=== PATIENT | female | born 1980 | race Caucasian/White ===

== ENCOUNTER 2016-08-22 11:25 | Observation (INO) | payer BC ==
[2016-08-22] VITALS (9 sets, daily range): BP systolic 106–126; BP diastolic 52–79
[~2016-08-22] VITALS: Ht 160 cm; Wt 73.9 kg
[~2016-08-22 11:25] MED LIST: HYDR-2758 PO; IV RINGERS,LACTATED 1000ML 1,000 ML IV SCH; LIDOCAINE 1% 1 ML SYRINGE. ID PRN; ONDA4TAB10 SL; ONDANSETRON PF 4 MG/2 ML VIAL. IV PRN; PROCHLORPERAZINE 10 MG/2 ML VIAL. IV PRN; fentaNYL PF VIAL 100 MCG/2 ML VIAL IV PRN
[2016-08-22] MEDS ORDERED: LIDOCAINE 1%/EPI 1:100,000 20 ML VIAL. ONE (11:38)
[2016-08-22] MEDS ORDERED: ESTROGENS, CONJ VAGINAL CREAM 30GM TUBE. ONE (11:38)
[2016-08-22] MEDS ORDERED: BUPIVACAINE-EPI 0.25%-1:200000 50 ML VIAL. ONE (11:38)
[2016-08-22] MEDS ORDERED: OMEP20TA63 PO (11:45)
[2016-08-22] MEDS ORDERED: NORG1TAB6 PO (11:45)
[2016-08-22 11:49] LABS: NEG OBC UR NEG; POS OBC UR POS
[2016-08-22 12:10] LABS: BASO % 0 % (0-3); EOS % 0 % (0-3); HEMATOCRIT 39.1 % (36.0-47.0); HEMOGLOBIN 13.2 g/dL (12.0-15.5); LYMPH # 1.9 x10^3/uL (1.0-4.8); LYMPH % 23 % (24-48); MEAN CORPUSCULAR HEMOGLOBIN 32 pg (25-35); MEAN CORPUSCULAR HGB CONC 34 g/dL (31-37); MEAN CORPUSCULAR VOLUME 97 fL (79-100); MONO % 6 % (0-9); NEUT % 71 % (31-73); PLATELET COUNT 211 x10^3/uL (140-400); RED BLOOD COUNT 4.05 x10^6/uL (3.50-5.40); RED CELL DISTRIBUTION WIDTH 13.2 % (11.5-14.5); WHITE BLOOD COUNT 8.3 x10^3/uL (4.0-11.0)
[2016-08-22] MEDS ORDERED: ROCURONIUM 50 MG/5 ML VIAL. ONE (13:13)
[2016-08-22] MEDS ORDERED: DEXAMETHASONE SOD PHOS 20 MG/5 ML VIAL. ONE (13:13)
[2016-08-22] MEDS ORDERED: MIDAZOLAM HCL/PF 2 MG/2 ML VIAL. ONE (13:13)
[2016-08-22] MEDS ORDERED: PROPOFOL 20 ML IV ONE (13:13)
[2016-08-22] MEDS ORDERED: ONDANSETRON PF 4 MG/2 ML VIAL. ONE (13:13)
[2016-08-22] MEDS ORDERED: SEVOFLURANE 61 TO 120 MINUTES. IH ONE (13:13)
[2016-08-22] MEDS ORDERED: fentaNYL PF VIAL 100 MCG/2 ML VIAL ONE (13:13)
[2016-08-22] MEDS ORDERED: LIDOCAINE 2% PF Vial for OR 5 ML VIAL. ONE (13:13)
[2016-08-22] MEDS: fentaNYL PF VIAL 100 MCG/2 ML VIAL IV PRN ×5 (15:16→18:56)
[2016-08-22] MEDS ORDERED: GLYCOPYRROLATE 1 MG/5 ML VIAL. ONE (17:51)
[2016-08-22] MEDS ORDERED: NEOSTIGMINE METHYLSULFATE 5 MG/5 ML SYRINGE. ONE (17:51)
--- NOTE | 2016-08-22 17:56 | PDOC ---
BRIEF OPERATIVE NOTE Pre-Op Diagnosis 1. Menorrhagia 2. Dysmenorrhea Post-Op Diagnosis Same Procedure Performed TLH via [facility] Surgeon Dr. Kimi Jordan Anesthesia Type: General Blood Loss 25 ml Specimens Obtained uterus and cervix Findings enlarged uterus; nml fallopian tubes and ovaries juliette. Complications none HAM GARRISON Jr, MD Aug 22, 2016 17:55
[2016-08-22] MEDS ORDERED: ZOLPIDEM 5 MG TABLET. PO PRN (18:00)
[2016-08-22] MEDS ORDERED: CALCIUM CARBONATE 500 MG TAB.CHEW PO PRN (18:00)
[2016-08-22] MEDS ORDERED: 0.9 % SODIUM CHLORIDE 10 ML DISP.SYRIN. IV PRN (18:00)
[2016-08-22] MEDS ORDERED: ONDANSETRON PF 4 MG/2 ML VIAL. IV PRN (18:00)
[2016-08-22] MEDS ORDERED: diphenhydrAMINE HCL 25 MG CAPSULE PO PRN (18:00)
[2016-08-22] MEDS ORDERED: SIMETHICONE 80 MG TAB.CHEW PO PRN (18:00)
[2016-08-22] MEDS ORDERED: PROCHLORPERAZINE 10 MG/2 ML VIAL. IV PRN (18:00)
[2016-08-22] MEDS ORDERED: diphenhydrAMINE 50 MG/ML VIAL IV PRN (18:00)
[2016-08-22] MEDS ORDERED: DEXTROSE 50% 25 GM / 50ML DISP.SYRIN. IV PRN (18:00)
[2016-08-22] MEDS: MEPERIDINE PF 25 MG/ML VIAL. IV PRN ×2 (18:23→18:35)
[2016-08-22] MEDS: KETOROLAC TROMETHAMINE 30 MG/ML INJ. IV PRN (19:00)
[2016-08-22] MEDS ORDERED: HYDROmorphone 2 MG/ML VIAL IV ONE (19:30)
[2016-08-22] MEDS: oxyCODONE/APAP 5/325 1 TAB TABLET PO PRN (21:56)
[2016-08-22] MEDS: GABAPENTIN 300 MG CAPSULE. PO SCH (21:56)
[2016-08-23] MEDS: oxyCODONE/APAP 5/325 1 TAB TABLET PO PRN ×3 (02:35→12:24)
[2016-08-23] MEDS: KETOROLAC TROMETHAMINE 30 MG/ML INJ. IV PRN (02:35)
[2016-08-23 02:43] VITALS: BP 124/67
[2016-08-23 05:12] LABS: BASO % 0 % (0-3); EOS % 0 % (0-3); HEMATOCRIT 35.5 % (36.0-47.0); HEMOGLOBIN 11.7 g/dL (12.0-15.5); LYMPH # 0.7 x10^3/uL (1.0-4.8); LYMPH % 5 % (24-48); MEAN CORPUSCULAR HEMOGLOBIN 32 pg (25-35); MEAN CORPUSCULAR HGB CONC 33 g/dL (31-37); MEAN CORPUSCULAR VOLUME 96 fL (79-100); MONO % 2 % (0-9); NEUT % 93 % (31-73); PLATELET COUNT 200 x10^3/uL (140-400); RED BLOOD COUNT 3.68 x10^6/uL (3.50-5.40); RED CELL DISTRIBUTION WIDTH 13.2 % (11.5-14.5); WHITE BLOOD COUNT 14.2 x10^3/uL (4.0-11.0)
[2016-08-23 05:49] VITALS: BP 99/56
[2016-08-23] MEDS: GABAPENTIN 300 MG CAPSULE. PO SCH (05:56)
[2016-08-23 08:02] VITALS: BP 117/65
--- NOTE | 2016-08-23 08:46 | PDOC ---
SURGICAL PROGRESS NOTE Subjective Pt. feeling well. Pain controlled. Pt. tolerating regular diet and ambulating in room. Vital Signs Vital Signs Date Time Temp Pulse Resp B/P (MAP) Pulse Ox O2 Delivery O2 Flow Rate FiO2 08/23/16 08:05 16 Room Air 08/23/16 05:49 97.5 66 99/56 (70) 98 97.5 08/22/16 21:35 2.0 I&O Intake and Output 08/23/16 07:00 Intake Total 4175 ml Output Total 2100 ml Balance 2075 ml Intake Oral 1675 ml IV Total 2500 ml Output Urine Total 2050 ml Estimated Blood Loss 50 ml PATIENT HAS A LEÓN: No General: Alert, Oriented X3, Cooperative HEENT: Atraumatic Lungs: Clear to auscultation Heart: Regular rate Abdomen: Normal bowel sounds, Soft, No tenderness Extremities: No edema Psych/Mental Status: Mental status NL Labs Laboratory Tests Test 08/22/16 11:40 08/22/16 11:50 08/22/16 14:05 08/22/16 15:04 Urine Test Negative (NEG) White Blood Count 8.3 x10^3/uL (4.0-11.0) Red Blood Count 4.05 x10^6/uL (3.50-5.40) Hemoglobin 13.2 g/dL (12.0-15.5) Hematocrit 39.1 % (36.0-47.0) Mean Corpuscular Volume 97 fL (79-100) Mean Corpuscular Hemoglobin 32 pg (25-35) Mean Corpuscular Hemoglobin Concent 34 g/dL (31-37) Red Cell Distribution Width 13.2 % (11.5-14.5) Platelet Count 211 x10^3/uL (140-400) Neutrophils (%) (Auto) 71 % (31-73) Lymphocytes (%) (Auto) 23 % (24-48) Monocytes (%) (Auto) 6 % (0-9) Eosinophils (%) (Auto) 0 % (0-3) Basophils (%) (Auto) 0 % (0-3) Neutrophils # (Auto) 5.9 x10^3uL (1.8-7.7) Lymphocytes # (Auto) 1.9 x10^3/uL (1.0-4.8) Monocytes # (Auto) 0.5 x10^3/uL (0.0-1.1) Eosinophils # (Auto) 0.0 x10^3/uL (0.0-0.7) Basophils # (Auto) 0.0 x10^3/uL (0.0-0.2) Glucose (Fingerstick) 77 mg/dL (70-99) 83 mg/dL (70-99) Test 08/23/16 04:45 White Blood Count 14.2 x10^3/uL (4.0-11.0) Red Blood Count 3.68 x10^6/uL (3.50-5.40) Hemoglobin 11.7 g/dL (12.0-15.5) Hematocrit 35.5 % (36.0-47.0) Mean Corpuscular Volume 96 fL (79-100) Mean Corpuscular Hemoglobin 32 pg (25-35) Mean Corpuscular Hemoglobin Concent 33 g/dL (31-37) Red Cell Distribution Width 13.2 % (11.5-14.5) Platelet Count 200 x10^3/uL (140-400) Neutrophils (%) (Auto) 93 % (31-73) Lymphocytes (%) (Auto) 5 % (24-48) Monocytes (%) (Auto) 2 % (0-9) Eosinophils (%) (Auto) 0 % (0-3) Basophils (%) (Auto) 0 % (0-3) Neutrophils # (Auto) 13.2 x10^3uL (1.8-7.7) Lymphocytes # (Auto) 0.7 x10^3/uL (1.0-4.8) Monocytes # (Auto) 0.2 x10^3/uL (0.0-1.1) Eosinophils # (Auto) 0.0 x10^3/uL (0.0-0.7) Basophils # (Auto) 0.0 x10^3/uL (0.0-0.2) Laboratory Tests Test 08/22/16 11:40 08/22/16 11:50 08/22/16 14:05 08/22/16 15:04 Urine Test Negative (NEG) White Blood Count 8.3 x10^3/uL (4.0-11.0) Red Blood Count 4.05 x10^6/uL (3.50-5.40) Hemoglobin 13.2 g/dL (12.0-15.5) Hematocrit 39.1 % (36.0-47.0) Mean Corpuscular Volume 97 fL (79-100) Mean Corpuscular Hemoglobin 32 pg (25-35) Mean Corpuscular Hemoglobin Concent 34 g/dL (31-37) Red Cell Distribution Width 13.2 % (11.5-14.5) Platelet Count 211 x10^3/uL (140-400) Neutrophils (%) (Auto) 71 % (31-73) Lymphocytes (%) (Auto) 23 % (24-48) Monocytes (%) (Auto) 6 % (0-9) Eosinophils (%) (Auto) 0 % (0-3) Basophils (%) (Auto) 0 % (0-3) Neutrophils # (Auto) 5.9 x10^3uL (1.8-7.7) Lymphocytes # (Auto) 1.9 x10^3/uL (1.0-4.8) Monocytes # (Auto) 0.5 x10^3/uL (0.0-1.1) Eosinophils # (Auto) 0.0 x10^3/uL (0.0-0.7) Basophils # (Auto) 0.0 x10^3/uL (0.0-0.2) Glucose (Fingerstick) 77 mg/dL (70-99) 83 mg/dL (70-99) Test 08/23/16 04:45 White Blood Count 14.2 x10^3/uL (4.0-11.0) Red Blood Count 3.68 x10^6/uL (3.50-5.40) Hemoglobin 11.7 g/dL (12.0-15.5) Hematocrit 35.5 % (36.0-47.0) Mean Corpuscular Volume 96 fL (79-100) Mean Corpuscular Hemoglobin 32 pg (25-35) Mean Corpuscular Hemoglobin Concent 33 g/dL (31-37) Red Cell Distribution Width 13.2 % (11.5-14.5) Platelet Count 200 x10^3/uL (140-400) Neutrophils (%) (Auto) 93 % (31-73) Lymphocytes (%) (Auto) 5 % (24-48) Monocytes (%) (Auto) 2 % (0-9) Eosinophils (%) (Auto) 0 % (0-3) Basophils (%) (Auto) 0 % (0-3) Neutrophils # (Auto) 13.2 x10^3uL (1.8-7.7) Lymphocytes # (Auto) 0.7 x10^3/uL (1.0-4.8) Monocytes # (Auto) 0.2 x10^3/uL (0.0-1.1) Eosinophils # (Auto) 0.0 x10^3/uL (0.0-0.7) Basophils # (Auto) 0.0 x10^3/uL (0.0-0.2) Assessment/Plan A: POD#1 s/p TLH P: D/c home Problems: HAM GARRISON Jr, MD Aug 23, 2016 08:45
--- NOTE | 2016-08-23 08:48 | DISCH ---
DISCHARGE INSTRUCTIONS Condition on Discharge Condition on Discharge: Stable Activity After Discharge Activity Instructions for Disc: Activity as tolerated Lifting Instructions after Dis: No heavy lifting Driving Instructions after Dis: Do not drive today Diet after Discharge Diet after Discharge: Regular Contacting the DRNhua after DC Call your doctor for: Concerns you may have Follow-Up Follow up with: Dr. Bolden in 2 weeks. HAM BOLDEN Jr, MD Aug 23, 2016 08:48
[2016-08-23 10:18] LABS: PLT ESTIMATE ADEQUATE (ADEQUATE)
[2016-08-23 12:20] VITALS: BP 117/65
[2016-08-23 13:55] VITALS: BP 116/66
--- NOTE | 2016-08-23 16:57 | PDOC4 ---
OPERATIVE NOTE: PreOp Dx: Dysmenorrhea Menorrhagia PostOp Dx: Same Procedure: TLH via [facility] Description: Pt. taken to surgery suite and placed in dorsolithotomy position. She was prepped and draped in normal fashion. Bi-valve speculum placed vaginally. Single tooth tenaculum placed on anterior lip of cervix. SRINIVAS uterine manipulator placed. Single tooth tenaculum and speculum removed. Attention now placed on abdomen. Small transversion skin incision made with scalpel just below umbilicus. Veres needle placed through incision site to insuflate abdomen to 1.5 L CO2. Veres needle removed and 8 mm tocar placed. Camera was placed. Two additional incisions were made in Right and Left lower quadrant for 8 mm port sites. An accessory port site was placed in upper Left quadrant. The [facility] robot was docked in normal fashion. I then proceeded to the adoption counselor. I utilized the vessel sealer and bipolar cautery for the procedure. The Right round ligament was coagulated and dissected. THe Right broad ligament was coagulated and dissected, including the Right uterine artery. A bladder flap was created with blunt dissection and with aid from the vessel sealer. The same process took place with the Left adnexa. Colpotomy was performed with the spatula at the level of the cervical ring. The uterus and cervix were removed. The vaginal cuff was reapproximated with V-lock suture in running fashion. Suction irrigation was used to verify good hemostasis. The ureters were visualized and functioning normally. The robot was undocked and the trocars removed. The skin incision sites were reapproximated with 4-0 vicryl in subcutaneous manner. 0.25% Marcaine with epinephrine was injected at each incision site. Moist vaginal packing was placed. Pt. tolerated procedure well. Sponge and needle count correct x 3. Pt. taken to PACU in stable condition. HAM GARRISON Jr, MD Aug 23, 2016 16:57
--- NOTE | 2016-08-26 15:10 | PATHOLOGY ---
PATHOLOGY REPORT * * * * * * * * FINAL DIAGNOSIS: Uterus, hysterectomy: - Cervix with mild chronic inflammation, squamous metaplasia and nabothian cysts. - Basalis endometrium. - Myometrium and serosal surface with no pathologic diagnosis. (SKM:pit; 08/26/2016) REPORT ELECTRONICALLY SIGNED BY: Carlton Hatfield M.D. DATE/TIME: 08/26/2016 15:09 * * * * * * * * GROSS PATHOLOGY: The specimen is received in formalin labeled "Analy Adams, uterus, cervix". Received is a 125 g, 8.8 x 5.8 x 4.1 cm uterus with attached cervix. The uterine serosa is pink-zendejas, smooth and glistening in appearance. The 1.0 cm cervical os is surrounded by pink-zendejas, which he porras-brown, granular ectocervical mucosa. The uterus is oriented using the peritoneal reflection and the anterior paracervical margin is inked black. The uterus is opened laterally to reveal a pale porras, slightly corrugated endocervical canal measuring 3.2 cm in length. The endometrial cavity is triangular measuring 4.0 cm in length by 2.5 cm in width. The endometrium is pale porras, granular in appearance and measures less than 0.1 cm in thickness. Serial sectioning reveals a pale porras, trabeculated myometrium measuring up to 2.3 cm in thickness with no grossly distinct nodules or lesions. The specimen is submitted representatively as follows: A1 12:00 cervix A2 6:00 cervix A3 anterior endomyometrium A4 posterior endomyometrium. (CAA; 08/24/2016) INITIAL CPT CODE(S): A; 41544 Professional services performed by [facility] at [address] [address] Technical services performed by [facility] at [address] [place] [address], [address], [place] [address]. Ekaterina Cody APRN fax: SPECIMEN(S) RECEIVED: A.Uterus and cervix CLINICAL HISTORY: Dysmenorrhea, abnormal uterine bleeding PATIENT: ANALY ADAMS /AGE: 607/26/1980 (Age: 36) PATIENT #: [id number] ALT CASE #: SPECIMEN COLLECTION DATE: 08/22/2016 SPECIMEN RECEIVED DATE: 08/23/2016 [facility] - [id number] [address] - PHONE: [phone] * * * END OF REPORT * * *
== END 2016-08-23 13:55 | disposition home or self-care (01) ==
LOC: SURG 11:25 → 3 NORTH 20:13
PROVIDERS: ADMIT Obstetrics & Gynecology; ATTEND Obstetrics & Gynecology
DX: N94.6 Dysmenorrhea, unspecified (principal); N92.0 Excessive and frequent menstruation with regular cycle
CPT/HCPCS: 36415; 58571; 81025; 82962; 85007; 85027; 86850; 86900; 86901; A4215; G0378; G0379; J0780; J1100; J1170; J1885; J2001; J2175; J2405; J2704; J2710; J3010; J3490; J7030; S2900; 88307; 96374; J2250

== ENCOUNTER 2016-09-27 17:57 | Emergency (ER) | payer BC ==
[~2016-09-27] VITALS: Ht 160 cm; Wt 72.6 kg
[~2016-09-27 17:57] MED LIST changes: -IV RINGERS,LACTATED 1000ML 1,000 ML IV SCH; -LIDOCAINE 1% 1 ML SYRINGE. ID PRN; +NORG1TAB6 PO; +OMEP20TA63 PO; -ONDANSETRON PF 4 MG/2 ML VIAL. IV PRN; -PROCHLORPERAZINE 10 MG/2 ML VIAL. IV PRN; -fentaNYL PF VIAL 100 MCG/2 ML VIAL IV PRN
[2016-09-27] MEDS ORDERED: IV NORMAL SALINE 1000ML BAG 1,000 ML IV ONE (18:15)
--- NOTE | 2016-09-27 18:18 | PHYS DOC ---
Past Medical History Past Medical History: Other Additional Past Medical Histor: fibroids Past Surgical History: Cholecystectomy, Hysterectomy Additional Past Surgical Histo: ovarian cyst removed Alcohol Use: Occasionally Drug Use: None Adult General Chief Complaint Chief Complaint: VAGINAL BLEEDING HPI HPI Patient is a 36 year old female who presents with vaginal bleeding that began one and a half hours prior to coming to the ED. Patient is status post hysterectomy done on August 22, [address] Bolden. Patient denies soaking more than one feminine pad per hour. Patient denies any abdominal pain but she states she has some discomfort in her abdomen. Denies any fever nausea vomiting. Denies any urgency frequency or dysuria. Review of Systems Review of Systems Constitutional: Denies fever or chills [] Eyes: Denies change in visual acuity, redness, or eye pain [] HENT: Denies nasal congestion or sore throat [] Respiratory: Denies cough or shortness of breath [] Cardiovascular: No additional information not addressed in HPI [] GI: Vag. bleeding post-hysterectomy : Denies dysuria or hematuria [] Musculoskeletal: Denies back pain or joint pain [] Integument: Denies rash or skin lesions [] Neurologic: Denies headache, focal weakness or sensory changes [] Endocrine: Denies polyuria or polydipsia [] Current Medications Current Medications Current Medications Medications (Trade) Dose Ordered Sig/Jackie Start Time Stop Time Status Last Admin Dose Admin Info (Do NOT chart on this entry -- for MONITORING) 1 each PRN DAILY PRN 09/27/16 18:30 09/29/16 18:29 Iohexol (Omnipaque 300 Mg/ml) 75 ml 1X ONCE 09/27/16 18:30 09/27/16 18:31 DC 09/27/16 19:17 75 ML Sodium Chloride 1,000 ml @ 1,000 mls/hr 1X ONCE 09/27/16 18:15 09/27/16 19:14 DC 09/27/16 18:36 1,000 MLS/HR Allergies Allergies Allergies Coded Allergies Type Severity Reaction Last Updated Verified codeine Adverse Reaction Intermediate Itching 08/22/16 Yes Physical Exam Physical Exam Constitutional: Well developed, well nourished, no acute distress, non-toxic appearance. [] HENT: Normocephalic, atraumatic, bilateral external ears normal, oropharynx moist, no oral exudates, nose normal. [] Eyes: PERRLA, EOMI, conjunctiva normal, no discharge. [] Neck: Normal range of motion, no tenderness, supple, no stridor. [] Cardiovascular:Heart rate regular rhythm, no murmur [] Lungs & Thorax: Bilateral breath sounds clear to auscultation [] Abdomen: Bowel sounds normal, soft, no tenderness, no masses, no pulsatile masses. [] Skin: Warm, dry, no erythema, no rash. [] Back: No tenderness, no CVA tenderness. [] Extremities: No tenderness, no cyanosis, no clubbing, ROM intact, no edema. [] Neurologic: Alert and oriented X 3, normal motor function, normal sensory function, no focal deficits noted. [] Psychologic: Affect normal, judgement normal, mood normal. [] Current Patient Data Vital Signs Vital Signs Date Time Temp Pulse Resp B/P (MAP) Pulse Ox O2 Delivery O2 Flow Rate FiO2 09/27/16 20:40 83 20 117/76 (90) 96 Room Air 09/27/16 18:07 98.7 98.7 Lab Values Laboratory Tests Test 09/27/16 18:25 White Blood Count 10.5 x10^3/uL (4.0-11.0) Red Blood Count 4.47 x10^6/uL (3.50-5.40) Hemoglobin 13.9 g/dL (12.0-15.5) Hematocrit 41.5 % (36.0-47.0) Mean Corpuscular Volume 93 fL (79-100) Mean Corpuscular Hemoglobin 31 pg (25-35) Mean Corpuscular Hemoglobin Concent 34 g/dL (31-37) Red Cell Distribution Width 13.5 % (11.5-14.5) Platelet Count 203 x10^3/uL (140-400) Neutrophils (%) (Auto) 71 % (31-73) Lymphocytes (%) (Auto) 22 % (24-48) L Monocytes (%) (Auto) 7 % (0-9) Eosinophils (%) (Auto) 1 % (0-3) Basophils (%) (Auto) 0 % (0-3) Neutrophils # (Auto) 7.5 x10^3uL (1.8-7.7) Lymphocytes # (Auto) 2.3 x10^3/uL (1.0-4.8) Monocytes # (Auto) 0.7 x10^3/uL (0.0-1.1) Eosinophils # (Auto) 0.1 x10^3/uL (0.0-0.7) Basophils # (Auto) 0.0 x10^3/uL (0.0-0.2) Urine Collection Type Unknown Urine Color Dayna Urine Clarity Clear Urine pH 5.5 Urine Specific Mentor 1.020 Urine Protein 30 mg/dL (NEG-TRACE) Urine Glucose (UA) Negative mg/dL (NEG) Urine Ketones (Stick) 15 mg/dL (NEG) Urine Blood Large (NEG) Urine Nitrite Negative (NEG) Urine Bilirubin Negative (NEG) Urine Urobilinogen Dipstick 1.0 mg/dL (0.2 mg/dL) Urine Leukocyte Esterase Small (NEG) Urine RBC 20-40 /HPF (0-2) Urine WBC Occ /HPF (0-4) Urine Squamous Epithelial Cells Mod /LPF Urine Bacteria Few /HPF (0-FEW) Sodium Level 139 mmol/L (136-145) Potassium Level 3.5 mmol/L (3.5-5.1) Chloride Level 104 mmol/L (98-107) Carbon Dioxide Level 21 mmol/L (21-32) Anion Gap 14 (6-14) Blood Urea Nitrogen 24 mg/dL (7-20) H Creatinine 0.9 mg/dL (0.6-1.0) Estimated GFR (Cockcroft-Gault) 70.5 BUN/Creatinine Ratio 27 (6-20) H Glucose Level 103 mg/dL (70-99) H Calcium Level 9.5 mg/dL (8.5-10.1) Total Bilirubin 0.5 mg/dL (0.2-1.0) Aspartate Amino Transferase (AST) 15 U/L (15-37) Alanine Aminotransferase (ALT) 36 U/L (14-59) Alkaline Phosphatase 72 U/L (46-116) Total Protein 7.7 g/dL (6.4-8.2) Albumin 4.3 g/dL (3.4-5.0) Albumin/Globulin Ratio 1.3 (1.0-1.7) Lipase 124 U/L (73-393) Urine Opiates Screen Neg (NEG) Urine Methadone Screen Neg (NEG) Urine Barbiturates Neg (NEG) Urine Phencyclidine Screen Neg (NEG) Urine Amphetamine/Methamphetamine Neg (NEG) Urine Benzodiazepines Screen Neg (NEG) Urine Cocaine Screen Neg (NEG) Urine Cannabinoids Screen Neg (NEG) Ethyl Alcohol Level < 10 mg/dL (0-10) Urine Ethyl Alcohol Neg (NEG) Laboratory Tests 09/27/16 18:25 Laboratory Tests 09/27/16 18:25 EKG EKG [] Radiology/Procedures Radiology/Procedures [] Course & Med Decision Making Course & Med Decision Making Pertinent Labs and Imaging studies reviewed. (See chart for details) Patient is in the ED with vaginal bleeding that began one and a half hours prior to coming to the ED. She is status post hysterectomy on August 22, 2016 Dragon Disclaimer Dragon Disclaimer This electronic medical record was generated, in whole or in part, using a voice recognition dictation system. Departure Departure Impression: Primary Impression: Dysfunctional uterine bleeding Additional Impression: Constipation Disposition: 01 HOME, SELF-CARE Condition: STABLE Referrals: JANIE BYNUM APRN (PCP) HAM BOLDEN Jr, MD follow up in next week in the office Patient Instructions: Constipation, Adult, Uterine Bleeding, Dysfunctional Additional Instructions: You were seen for vaginal bleeding post-hysterectomy. Your CT scan of the abdomen and pelvic was negative for any acute findings. Urine noted to have large amount of stool in the colon. Please follow-up with Dr. Kimi chacon, return to the ED if you start soaking more than 1 feminine pad an hour. Consider using [id number] medications like magnesium citrate for constipation. Scripts Magnesium Citrate (MAGNESIUM CITRATE) 296 Ml Solution 296 ML PO ONCE, #296 ML Prov: CHINTAN LOERA APRN 09/27/16 Problem Qualifiers Additional Impression: Constipation Constipation type: unspecified constipation type Qualified Codes: K59.00 - Constipation, unspecified CHINTAN LOERA APRN Sep 27, 2016 18:18
[2016-09-27] MEDS ORDERED: IOHEXOL 300 MG/ML 75 ML VIAL IV ONE (18:30)
[2016-09-27] MEDS ORDERED: CONTRAST GIVEN MC PRN (18:30)
[2016-09-27 18:51] LABS: BASO % 0 % (0-3); EOS % 1 % (0-3); HEMATOCRIT 41.5 % (36.0-47.0); HEMOGLOBIN 13.9 g/dL (12.0-15.5); LYMPH # 2.3 x10^3/uL (1.0-4.8); LYMPH % 22 % (24-48); MEAN CORPUSCULAR HEMOGLOBIN 31 pg (25-35); MEAN CORPUSCULAR HGB CONC 34 g/dL (31-37); MEAN CORPUSCULAR VOLUME 93 fL (79-100); MONO % 7 % (0-9); NEUT % 71 % (31-73); PLATELET COUNT 203 x10^3/uL (140-400); RED BLOOD COUNT 4.47 x10^6/uL (3.50-5.40); RED CELL DISTRIBUTION WIDTH 13.5 % (11.5-14.5); WHITE BLOOD COUNT 10.5 x10^3/uL (4.0-11.0)
[2016-09-27 18:54] LABS: BILIRUBIN,URINE NEGATIVE (NEG); GLUCOSE,URINE NEGATIVE (NEG); NITRITE,URINE NEGATIVE (NEG); PH,URINE 5.5; PROTEIN,URINE 30 mg/dL (NEG-TRACE)
[2016-09-27 18:55] LABS: BARBITURATES NEG (NEG); BENZODIAZEPINES NEG (NEG); CANNABINOIDS NEG (NEG); COCAINE NEG (NEG); METHADONE NEG (NEG); OPIATES NEG (NEG); PHENCYCLIDINE NEG (NEG)
[2016-09-27 19:08] LABS: CALCIUM 9.5 mg/dL (8.5-10.1); CREATININE 0.9 mg/dL (0.6-1.0); GFR 70.5; POTASSIUM 3.5 mmol/L (3.5-5.1)
[2016-09-27 19:15] LABS: BACTERIA,URINE FEW /HPF (0-FEW); RBC,URINE 20-40 /HPF (0-2); SQUAMOUS EPITHELIAL CELL,UR MOD /LPF; WBC,URINE OCC /HPF (0-4)
[2016-09-27 19:16] LABS: ALBUMIN 4.3 g/dL (3.4-5.0); ALBUMIN/GLOBULIN RATIO 1.3 (1.0-1.7); TOTAL BILIRUBIN 0.5 mg/dL (0.2-1.0); TOTAL PROTEIN 7.7 g/dL (6.4-8.2)
--- NOTE | 2016-09-27 19:52 | RAD ---
CT abdomen and pelvis with contrast History: Vaginal bleeding starting at 1500 today, 5 weeks post hysterectomy Technique: After the administration of intravenous contrast, CT imaging was performed of the abdomen and pelvis. No oral contrast was given as per request. Multiplanar images are reviewed. Exposure: One or more of the following individualized dose reduction techniques were utilized for this examination: 1. Automated exposure control 2. Adjustment of the mA and/or kV according to patient size 3. Use of iterative reconstruction technique. Contrast: 75 cc Omnipaque 300 Comparison: None Findings: There is no significant abnormality of the visualized lung bases. There is no significant abnormality of the spleen, pancreas, adrenal glands. Small 0.5 cm hypodense lesion left lobe of liver is too small to otherwise accurately characterize. Both kidneys enhance without hydronephrosis. There has been cholecystectomy. Accurate evaluation of bowel is limited without oral contrast. There is no significant inflammatory change adjacent to the bowel. There is no evidence of bowel obstruction, free fluid, or free air. Normal appendix is visualized. There has been hysterectomy. There is hypodense lesion of the left adnexa to 2 cm with mild peripheral enhancement, also probable small right adnexal hypodense lesion up to 0.9 cm. There is retained stool greatest of the sigmoid colon. Impression: 1. There has been hysterectomy. There is likely partially collapsed left adnexal cyst, questionably on the right. There is no CT evidence of acute appendicitis. There is retained stool greatest of the sigmoid colon. Electronically signed by: Duncan Lindsey MD (09/27/2016 7:48 PM) [facility]
[2016-09-27] MEDS ORDERED: MAGN296S9 PO (20:53)
[2016-09-27 21:11] VITALS: BP 119/76
== END 2016-09-27 21:11 | disposition home or self-care (01) ==
LOC: ER 17:57
DX: N93.8 Other specified abnormal uterine and vaginal bleeding (principal); K59.00 Constipation, unspecified; Z90.710 Acquired absence of both cervix and uterus; Z88.5 Allergy status to narcotic agent; Z90.49 Acquired absence of other specified parts of digestive tract
CPT/HCPCS: 36415; 74177; 80053; 80307; 81001; 83690; 85025; 96360; 99285; G0480; J7030; Q9967; G0479